=== PATIENT | male | born 1945 | race Caucasian/White ===

== ENCOUNTER 2017-07-24 14:16 | Inpatient (IN) | payer MEDICARE ==
[2017-07-24 19:12] LABS: Troponin I Less than 0.010 ng/mL (< 0.028)
[2017-07-24 22:46] LABS: Troponin I Less than 0.010 ng/mL (< 0.028)
[2017-07-24] MEDS ORDERED: Warfarin Sodium 7.5 MG TAB PO SCH (23:45)
[2017-07-25] MEDS ORDERED: Ondansetron HCl/PF 4 MG/2 ML Vial IVP PRN (02:17)
[2017-07-25] MEDS ORDERED: Dextrose 5% in Water 1,000 ML IV PRN (02:17)
[2017-07-25] MEDS ORDERED: Insulin Regular 300 UNITS/3 ML VIAL SC PRN (02:17)
[2017-07-25] MEDS ORDERED: Ondansetron ODT 4 MG TAB PO PRN (02:17)
[2017-07-25] MEDS ORDERED: Nitroglycerin 0.4 MG TAB (25 Tab Bottle) PO PRN (02:17)
[2017-07-25] MEDS ORDERED: Senokot 8.6 MG TAB PO PRN (02:17)
[2017-07-25] MEDS ORDERED: Calcium Carbonate 500 MG ChewTAB PO PRN (02:17)
[2017-07-25] MEDS ORDERED: Dextrose 50% Abboject 50 ML SYRINGE SLOW IVP PRN (02:17)
[2017-07-25] MEDS ORDERED: Milk Of Magnesia 30 ML UDCUP PO PRN (02:17)
[2017-07-25] MEDS ORDERED: hydrALAZINE 20 MG/ML VIAL SLOW IVP PRN (02:21)
--- NOTE | 2017-07-25 02:47 | HP ---
DATE OF ADMISSION: 07/24/2017 PRIMARY CARE PHYSICIAN: Dr. Kiki Peres in [place]. FAMILY AUTISM TEACHER: Alex Simon. The patient thinks that his primary retail sales associate bilingual, Dr. Col busch. CHIEF COMPLAINT: Near syncopal episode. Please note that patient was seen and examined on 07/24/2017. HISTORY OF PRESENT ILLNESS: The patient is a 72-year-old male with chronic atrial fibrillation on an ticoagulation, diabetes mellitus type 2, hypertension, and dyslipidemia who presented to the hospital with above symptoms. This happened and while he was standing near the sink. Everything went foggy per patient report. Th e symptom lasted less than a minute. He denies any loss of consciousness. Two years ago, he had sim ilar symptoms. He denies any tinnitus, hearing loss, vertigo, headache, chest pain, palpitations, or shortness of breath. He thinks that he is back to his baseline. In the emergency room at [place], his initial vital signs showed temperature 98.3, respirations 16, pulse rate of 60 with a blood pressure 148/99 with O2 saturation 96% on room air. His EKG showed atr ial fibrillation with controlled ventricular response. In the emergency room, his heart rate dipped down into the low 40s. He was transferred to this facility for hospital admission. PAST MEDICAL HISTORY: 1. Chronic atrial fibrillation, on anticoagulation. 2. Chronic diastolic heart failure. 3. Obesity with a BMI 37.2. 4. Diabetes mellitus type 2. 5. Hypertension. 6. Dyslipidemia. 7. Glaucoma. PAST SURGICAL HISTORY: 1. Right ankle surgery. 2. Cyst removed from his testicles. 3. Cataract surgery. ALLERGIES: The patient is allergic to CODEINE. CURRENT HOME MEDICATIONS: Lipitor 10 mg daily, Lasix 40 mg daily, lisinopril/hydrochlorothiazide 20/ 12.5 daily, metformin 1000 mg b.i.d., potassium chloride 10 mEq daily, Coumadin 5 mg alternating with 7.5 mg. SOCIAL HISTORY: Patient currently lives at home. No smoking, alcohol or drug use. He has smoked ci gars in the past. He ambulates with the help of a cane. FAMILY HISTORY: Both parents had [place]. Mother at the age of 70. Father at age of 69. REVIEW OF SYSTEMS: The following complete review of systems was negative, unless otherwise mentioned in the HPI or below: Constitutional: Weight loss or gain, ability to conduct usual activities. Sk in: Rash, itching. Eyes: Double vision, pain. ENT/Mouth: Nose bleeding, neck stiffness, pain, te nderness. Cardiovascular: Palpitations, dyspnea on exertion, orthopnea. Respiratory: Shortness of breath, wheezing, cough, hemoptysis, fever or night sweats. Gastrointestinal: Poor appetite, abdom inal pain, heartburn, nausea, vomiting, constipation, or diarrhea. Genitourinary: Urgency, frequenc y, dysuria, nocturia. Musculoskeletal: Pain, swelling. Neurologic/Psychiatric: Anxiety, depressio n. Allergy/Immunologic: Skin rash, bleeding tendency. PHYSICAL EXAMINATION: VITAL SIGNS: As discussed above. His orthostatic vitals were negative. GENERAL: A 72-year-old male in no apparent distress. HEENT: Head is atraumatic, normocephalic, sclerae are anicteric. Moist mucous membranes. No oral l esion. NECK: Supple, no JVD appreciated. No carotid bruit. LUNGS: Clear to auscultation bilaterally, no wheezing or rhonchi. Lungs were symmetrical. HEART: S1, S2 present. Irregularly irregular, 2/6 systolic murmur over the mitral area. ABDOMEN: Soft, nontender, bowel sounds present, no rebound or guarding. EXTREMITIES: A 1+ edema in bilateral lower extremities. No calf tenderness. NEUROLOGIC: Grossly nonfocal, moves all four extremities. Power was 5/5 in all extremities. Crania l nerves II-XII were normal on examination. PSYCHIATRY: Alert, awake, oriented x3. SKIN: Warm and dry. LYMPH NODES: No palpable lymph nodes in the neck. PERIPHERAL VASCULAR: Radial pulses palpable bilaterally. MUSCULOSKELETAL: No joint swelling or tenderness. LABORATORY AND X-RAY FINDINGS: Troponins x3 have been negative. BNP was 183. Chemistry showed sodi um 139, potassium 3.9 with BUN 13, creatinine 0.76. CBC showed WBC 13.5 with hemoglobin 14.5, hematocrit 44. INR 1.5. CT scan of the brain by my review was negative for acute findings. It showed diffuse atrophy with mild chronic ischemic changes. EKG by my review showed atrial fibrillation with controlled ventricular response. IMPRESSION AND PLAN: 1. Near syncope, suspected cardiogenic. 2. Chronic atrial fibrillation on anticoagulation. 3. Subtherapeutic INR. 4. Chronic diastolic heart failure, appears to be compensated. 5. Obesity with a BMI of 37. 6. Diabetes mellitus type 2. 7. Hypertension. 8. Dyslipidemia. 9. Glaucoma. 10. Degenerative joint disease. PLAN: The patient will be monitored in the telemetry unit. Cardiology will be consulted. We will c ontinue his home medications. He was found to have heart rate in 40s at the emergency room. He is c urrently not on any AV melba blockers. We will continue all of his home medications. Orthostatic vi tals have been negative. Echocardiogram will be obtained. Plan of care was discussed with the patient in detail. He stated understanding. Insulin sliding sca le will be started. Please note that patient was seen on 07/24/2017.
[2017-07-25 04:58] LABS: INR-International Normal Ratio 1.5; Prothrombin Time 18.3 SEC (12.0-14.7)
[2017-07-25] MEDS: Lisinopril/Hydrochlorothiazide 20 mg/12.5 mg Tablet PO SCH (07:50)
[2017-07-25] MEDS ORDERED: Warfarin Sodium 7.5 MG TAB PO SCH (17:00)
--- NOTE | 2017-07-25 18:57 | CON ---
DATE OF CONSULTATION: 07/25/2017 CARDIOLOGY CONSULTATION REASON FOR CONSULTATION: Bradycardia and near syncope. HISTORY OF PRESENT ILLNESS: Mr. Cooper is a pleasant 72-year-old white gentleman who comes to the [facility] for near syncope. He was at home standing by the sink couple of days ago and he felt like the y were closing down the blinds on him. He felt he was close to passing out, eventually just sat down and it slowly got better. He states he has had several of these episodes since, so he decided to co me in for evaluation. He denies any full syncope. He has chronic atrial fibrillation. He saw Dr. Edwin nascimento in the hospital once and then as followup. He was following up with Dr. Bowen when he used to g o to [place]. Since he stopped going to [place], he has been lost to follow up. He is supposed to be on Coumadin for stroke prophylaxis and according to what he is telling me, he has not had it chec ked for a long time; actually 2 months ago, home health came to his house and they checked it, but he thinks that he has only been taking his medication. He has not been coming to [place] to check his IN R and his PCP according to him has not checked it either. Currently, he tells me he had a similar ep isode of presyncope at around noon when he was about to start his lunch and this correlated with a he art rate of 42 at that time. His heart rate has remained between the 40s and 60s mostly in the 60s. PAST MEDICAL HISTORY: 1. Chronic atrial fibrillation. 2. Chronic diastolic heart failure. 3. BMI of 37. 4. Type 2 diabetes. 5. Hypertension. 6. Hyperlipidemia. 7. Glaucoma. PAST SURGICAL HISTORY: 1. Right ankle surgery. 2. Cyst removed from testicle. 3. Cataract surgery. OUTPATIENT MEDICATIONS: 1. Lipitor. 2. Lasix. 3. Lisinopril/hydrochlorothiazide 20/12.5 daily. 4. Metformin. 5. Potassium chloride 10 mEq a day. 6. Coumadin. ALLERGIES: CODEINE. SOCIAL HISTORY: No alcohol, tobacco or drugs. He is a former cigar smoker. FAMILY HISTORY: Both parents had [place]. Mother at 70, father at 69. REVIEW OF SYSTEMS: Twelve point review of systems was done and is all negative unless stated in the history of present illness. PHYSICAL EXAMINATION: VITAL SIGNS: Temperature 98.5, pulse 64, respiration rate 18, satting 96% on room air, blood pressur e 137/70. He is not orthostatic. GENERAL: Awake, alert, oriented x3, in no distress. HEENT: Normocephalic, atraumatic. NECK: Supple. LUNGS: Clear. CARDIOVASCULAR: S1, S2, no S3, S4. Irregularly irregular heart rate in the 40s-50s. ABDOMEN: Soft, positive bowel sounds. EXTREMITIES: A 1+ edema. SKIN: Warm and dry. LABORATORY WORK: Reviewed. CBC with a white count of 13, hemoglobin 14, hematocrit 44, platelet cou nt 269. Coags were unremarkable. INR is 1.5, so subtherapeutic. Troponin is negative x3. BNP was 183. Normal sodium, potassium. Normal GFR. CT of the brain showed diffuse atrophy with mild chronic ischemic changes and left maxillary sinus mu cosal thickening. ASSESSMENT AND PLAN: 1. Symptomatic bradycardia. 2. Tachybrady syndrome. 3. Chronic atrial fibrillation. PLAN: 1. He had a presyncopal episode when his heart rate went down to the 40s. He is not taking any AV n odal blocking agents and his atrial fibrillation is going very slow. He goes generally in the 60s an d then he dips suddenly below 40s. At this time, I think he would be a candidate for a pacemaker leonardo cement. He is starting to get a little more confused, I will have to talk with his to see if [facility] are interested in having this done. We may have to wait for him to get less confused for this. Edwin thomas will make this decision later today. 2. Chronic atrial fibrillation. Currently, he is subtherapeutic on his INR. We will hold his Couma din for now for possible pacemaker placement tomorrow. 3. Hypertension, stable at this time. 4. Hyperlipidemia. 5. We will talk with his about possible pacemaker placement. If she is in agreement, we will p anselmo on doing this tomorrow morning. 6. Hold Coumadin for now secondary to possible pacemaker placement. 7. N.p.o. post-midnight for possible procedure in the morning. Thank you for letting us to participate in the care of your patient. We will follow.
[2017-07-25] MEDS: Atorvastatin Calcium 10 MG TAB PO SCH (20:14)
--- NOTE | 2017-07-25 20:34 | PDOC.PN ---
- Subjective Encounter Start Date: 07/25/17 Encounter Start Time: 20:25 Subjective: f/u for near syncope and symptomatic bradycardia. HR's in 50-60's -: but no symptoms currently. No CP or SOB. Admits to poor exercise -: tolerance and balance at home. - Objective Resuscitation Status: Resuscitation Status FULL:Full Resuscitation MAR Reviewed: Yes Vital Signs & Weight: Vital Signs (12 hours) Temp Pulse Resp BP BP BP BP 07/25/17 15:32 98.5 F 64 24 H 136/71 07/25/17 13:10 66 153/68 H 07/25/17 11:05 64 137/70 144/96 H 07/25/17 10:28 97.8 F 54 L 18 139/81 BP Pulse Ox 07/25/17 15:32 94 L 07/25/17 13:10 07/25/17 11:05 139/70 07/25/17 10:28 96 Weight Weight 305 lb 8 oz I&O: 07/24/17 07/25/17 07/26/17 06:59 06:59 06:59 Intake Total 480 Output Total 500 Balance -20 Additional Labs: Accuchecks 07/25/17 07/25/17 07/25/17 16:50 10:30 05:33 POC Glucose 135 H 127 H 155 H Laboratory Tests 01/24/17 07/24/17 07/24/17 09:21 12:06 18:40 PT INR Hemoglobin A1c 6.2 H Troponin I Less than 0.010 B-Natriuretic Peptide 183.2 H 07/24/17 07/25/17 22:11 04:30 PT 18.3 H INR 1.5 Hemoglobin A1c Troponin I Less than 0.010 B-Natriuretic Peptide Radiology Reviewed by me: Yes (2D echo - EF 60-65%, A-fib during study) EKG Reviewed by me: Yes (Tele - A-fib with controlled rate, 9 beats V-tach) Phys Exam - Physical Examination Constitutional: NAD HEENT: PERRLA, oral pharynx no lesions Neck: no JVD, supple Respiratory: no wheezing, clear to auscultation bilateral Cardiovascular: irregular Gastrointestinal: soft, non-tender, no distention, positive bowel sounds Musculoskeletal: no edema, pulses present Neurological: normal sensation, moves all 4 limbs Psychiatric: A&O x 3 Skin: normal turgor, cap refill <2 seconds Dx/Plan (1) Symptomatic bradycardia Code(s): R00.1 - BRADYCARDIA, UNSPECIFIED Status: Acute Comment: Plan for pacemaker placement in am 07/26/17, hold Coumadin (2) Near syncope Status: Acute Comment: Recurrent episodes likely due to #1, see above (3) Atrial fibrillation Code(s): I48.91 - UNSPECIFIED ATRIAL FIBRILLATION Status: Chronic Comment: Rate controlled, Coumadin subtherapeutic for anticoagulation (4) Diastolic CHF Code(s): I50.30 - UNSPECIFIED DIASTOLIC (CONGESTIVE) HEART FAILURE Status: Chronic Qualifiers: Heart failure chronicity: chronic Qualified Code(s): I50.32 - Chronic diastolic (congestive) heart failure Comment: EF 60-65%, supportive mgmt - Plan DVT proph w/SCDs Stable currently -: Plan for Pacemaker insertion 07/26/17 -: Hold Coumadin -: PT evaluation after PM placement -: AM labs: PT/INR * Convert to inpt status
[2017-07-26 05:51] LABS: INR-International Normal Ratio 1.6; Prothrombin Time 19.4 SEC (12.0-14.7)
[2017-07-26] MEDS: Lisinopril/Hydrochlorothiazide 20 mg/12.5 mg Tablet PO SCH ×2 (08:52→12:31)
--- NOTE | 2017-07-26 16:02 | PDOC.CTH ---
Cardiology Progress Note - Subjective He is doing better. Mentation is back at baseline. Family at bedside. - Objective Vital Signs Temp Pulse Resp BP BP Pulse Ox 07/26/17 14:01 97.5 F L 54 L 18 145/91 H 96 07/26/17 12:31 60 163/99 H 07/26/17 11:43 97.7 F 60 18 163/99 H 97 07/26/17 08:00 97.4 F L 53 L 20 97 07/26/17 07:38 97.4 F L 53 L 18 138/73 97 - Physical Examination General/Neuro: alert & oriented x3, NAD Neck: no JVD present Lungs: CTA, unlabored respirations Heart: RRR Abdomen: NT/ND Extremities: + edema B (1+) - Telemetry Telemetry Rhythm: Afib HR 50-60 - Labs Troponin/CKMB Troponin I Less than 0.010 ng/mL (< 0.028) 07/24/17 22:11 - Assessment/Plan 1. Afib SVR 2. Symptomatic bradycardia. 3. Presyncope PLAN: - PPM placement once INR lower. - Continue other meds. - No AV melba blocking agents.
[2017-07-26] MEDS ORDERED: Warfarin Sodium 5 MG TAB PO SCH (17:00)
--- NOTE | 2017-07-26 18:36 | PDOC.PN ---
- Subjective Encounter Start Date: 07/26/17 Encounter Start Time: 18:30 Subjective: f/u for symptomatic bradycardia and near syncopal event. Plan for PM -: placement but INR 1.6. Retry in am per nursing. No new events or -: complaints. - Objective MAR Reviewed: Yes Vital Signs & Weight: Vital Signs (12 hours) Temp Pulse Resp BP BP BP Pulse Ox 07/26/17 16:03 97.6 F 74 16 134/84 95 07/26/17 14:01 97.5 F L 54 L 18 145/91 H 96 07/26/17 12:31 60 163/99 H 07/26/17 11:43 97.7 F 60 18 163/99 H 97 07/26/17 08:00 97.4 F L 53 L 20 97 07/26/17 07:38 97.4 F L 53 L 18 138/73 97 I&O: 07/25/17 07/26/17 07/27/17 06:59 06:59 06:59 Intake Total 970 Output Total 325 Balance 645 Additional Labs: Accuchecks 07/26/17 07/26/17 07/26/17 17:51 11:52 06:37 POC Glucose 132 H 122 H 148 H 07/25/17 20:51 POC Glucose 174 H Radiology Reviewed by me: Yes (2D echo EF 60-65%, A-fib during study, mild MR/ TR) EKG Reviewed by me: Yes (Tele - A-fib in 40-50's) Phys Exam - Physical Examination Constitutional: NAD HEENT: PERRLA, oral pharynx no lesions Neck: no JVD, supple Respiratory: no wheezing, clear to auscultation bilateral Cardiovascular: irregular Gastrointestinal: soft, non-tender, no distention, positive bowel sounds Musculoskeletal: no edema, pulses present Neurological: normal sensation, moves all 4 limbs Psychiatric: A&O x 3 Skin: normal turgor, cap refill <2 seconds Dx/Plan (1) Symptomatic bradycardia Code(s): R00.1 - BRADYCARDIA, UNSPECIFIED Status: Acute Comment: Plan for pacemaker placement in am 07/27/17, hold Coumadin (2) Near syncope Status: Acute Comment: Recurrent episodes likely due to #1, see above (3) Atrial fibrillation Code(s): I48.91 - UNSPECIFIED ATRIAL FIBRILLATION Status: Chronic Comment: Rate controlled, Coumadin subtherapeutic for anticoagulation but on hold for PM placement (4) Diastolic CHF Code(s): I50.30 - UNSPECIFIED DIASTOLIC (CONGESTIVE) HEART FAILURE Status: Chronic Qualifiers: Heart failure chronicity: chronic Qualified Code(s): I50.32 - Chronic diastolic (congestive) heart failure Comment: EF 60-65%, supportive mgmt (5) HTN (hypertension) Code(s): I10 - ESSENTIAL (PRIMARY) HYPERTENSION Status: Chronic Qualifiers: Hypertension type: essential hypertension Qualified Code(s): I10 - Essential (primary) hypertension Comment: Labile, resume Lasix 40mg daily, continue Lisinopril/HCTZ - Plan DVT proph w/SCDs Stable currently -: PM placement planned for 07/27/17 -: Hold Coumadin and check INR in am -: Resume Lasix and monitor fluid intake -: AM lab: PT/INR * .
[2017-07-26] MEDS: Atorvastatin Calcium 10 MG TAB PO SCH (20:51)
[2017-07-26] MEDS: Acetaminophen 325 MG TAB PO PRN (20:52)
[2017-07-27 05:33] LABS: INR-International Normal Ratio 1.5
[2017-07-27] MEDS: Furosemide 40 MG TAB PO SCH (07:22)
[2017-07-27] MEDS: Lisinopril/Hydrochlorothiazide 20 mg/12.5 mg Tablet PO SCH (09:36)
[2017-07-27] MEDS: Potassium Chloride 10 MEQ TAB PO SCH (09:37)
[2017-07-27] MEDS: Insulin Regular 300 UNITS/3 ML VIAL SC PRN (11:54)
--- NOTE | 2017-07-27 13:56 | PDOC.PN ---
- Subjective Encounter Start Date: 07/27/17 Encounter Start Time: 11:00 Patient is seen today, Waiitng on pacemaker placement, his INR is Still >1.3, No concerns noted. - Objective MAR Reviewed: Yes Vital Signs & Weight: Vital Signs (12 hours) Temp Pulse Resp BP Pulse Ox 07/27/17 11:50 97.3 F L 56 L 18 117/62 97 07/27/17 07:17 97.7 F 58 L 18 135/72 94 L 07/27/17 04:00 97.5 F L 59 L 20 138/77 94 L Weight Weight 298 lb 14.4 oz I&O: 07/26/17 07/27/17 07/28/17 06:59 06:59 06:59 Intake Total 1330 Output Total 775 Balance 555 Additional Labs: Accuchecks 07/27/17 07/27/17 07/26/17 11:23 06:00 20:40 POC Glucose 194 H 144 H 196 H 07/26/17 17:51 POC Glucose 132 H Radiology Reviewed by me: Yes Phys Exam - Physical Examination HEENT: PERRLA, moist MMs Neck: no nodes, no JVD Respiratory: no wheezing, no rales Cardiovascular: RRR, no significant murmur Gastrointestinal: soft, non-tender Musculoskeletal: no edema, pulses present Neurological: non-focal, normal sensation Lymphatic: no nodes Psychiatric: normal affect Dx/Plan (1) Near syncope Status: Acute Comment: Recurrent episodes likely due to Bradycardia (2) Symptomatic bradycardia Code(s): R00.1 - BRADYCARDIA, UNSPECIFIED Status: Acute Comment: Plan for pacemaker placement in am 07/27/17, hold Coumadin (3) HTN (hypertension) Code(s): I10 - ESSENTIAL (PRIMARY) HYPERTENSION Status: Chronic Qualifiers: Hypertension type: essential hypertension Qualified Code(s): I10 - Essential (primary) hypertension Comment: Labile, resume Lasix 40mg daily, continue Lisinopril/HCTZ (4) Atrial fibrillation Code(s): I48.91 - UNSPECIFIED ATRIAL FIBRILLATION Status: Chronic Comment: Rate controlled, Coumadin subtherapeutic for anticoagulation but on hold for PM placement, INR today 1.5, goal <1.3 (5) Diastolic CHF Code(s): I50.30 - UNSPECIFIED DIASTOLIC (CONGESTIVE) HEART FAILURE Status: Chronic Qualifiers: Heart failure chronicity: chronic Qualified Code(s): I50.32 - Chronic diastolic (congestive) heart failure Comment: EF 60-65%, supportive mgmt - Plan cont current plan of care, respiratory therapy, incentive spirometry, DVT proph w/SCDs * . - Discharge Day Encounter end time: 11:35 Review of Systems - Review of Systems Constitutional: negative: fever, chills, sweats, weakness, malaise, other Eyes: negative: Pain, Vision Change, Conjunctivae Inflammation, Eyelid Inflammation, Redness, Other ENT: negative: Ear Pain, Ear Discharge, Nose Pain, Nose Discharge, Nose Congestion, Mouth Pain, Mouth Swelling, Throat Pain, Throat Swelling, Other Respiratory: negative: Cough, Dry, Shortness of Breath, Hemoptysis, SOB with Excertion, Pleuritic Pain, Sputum, Wheezing Cardiovascular: negative: chest pain, palpitations, orthopnea, paroxysmal nocturnal dyspnea, edema, light headedness, other Gastrointestinal: negative: Nausea, Vomiting, Abdominal Pain, Diarrhea, Constipation, Melena, Hematochezia, Other Musculoskeletal: negative: Neck Pain, Shoulder Pain, Arm Pain, Back Pain, Hand Pain, Leg Pain, Foot Pain, Other - Medications/Allergies Allergies/Adverse Reactions: Allergies Allergy/AdvReac Type Severity Reaction Status Date / Time codeine AdvReac Severe Verified 07/24/17 22:16 Medications: Current Medications Acetaminophen (Tylenol) 650 mg PO Q4H PRN PRN Reason: Headache/Fever or Pain Last Admin: 07/26/17 20:52 Dose: 650 mg Atorvastatin Calcium (Lipitor) 10 mg PO [facility] Last Admin: 07/26/17 20:51 Dose: 10 mg Calcium Carbonate (Tums) 1,000 mg PO Q4H PRN PRN Reason: Heartburn or Indigestion Dextrose/Water (Dextrose 50%) 25 gm SLOW IVP PRN PRN PRN Reason: Hypoglycemia Furosemide (Lasix) 40 mg PO DAILY-AC [facility] Last Admin: 07/27/17 07:22 Dose: 40 mg Glucagon (Glucagon) 1 mg IM PRN PRN PRN Reason: Hypoglycemia Lisinopril/HCTZ (Prinizide 20-12.5) 1 tab PO DAILY [facility] Last Admin: 07/27/17 09:36 Dose: 1 tab Hydralazine HCl (Apresoline) 10 mg SLOW IVP Q4H PRN PRN Reason: SBP Greater Than 180 Dextrose/Water (D5w) 1,000 mls @ 0 mls/hr IV .Q0M PRN; As Directed PRN Reason: Hypoglycemia Insulin Human Regular (Humulin R) 0 units SC .MILD SLIDING SCALE PRN PRN Reason: Mild Correctional Scale Last Admin: 07/27/17 11:54 Dose: 2 unit Insulin Human Regular (Humulin R) 0 units SC .BEDTIME SLIDING SC PRN PRN Reason: Bedtime Correctional Scale Magnesium Hydroxide (Milk Of Magnesium) 30 ml PO DAILYPRN PRN PRN Reason: Constipation Miscellaneous Medication (Pharmacy To Dose) 1 each PO .WARFARIN [facility] Stop: 08/24/17 02:31 Nitroglycerin (Nitrostat) 0.4 mg PO Q5MIN PRN PRN Reason: Chest Pain Ondansetron HCl (Zofran Odt) 4 mg PO Q6H PRN PRN Reason: Nausea/Vomiting Ondansetron HCl (Zofran) 4 mg IVP Q6H PRN PRN Reason: Nausea/Vomiting Potassium Chloride (Klor-Con 10) 10 meq PO QAM-WM [facility] Last Admin: 07/27/17 09:37 Dose: 10 meq Senna (Senokot) 2 tab PO HSPRN PRN PRN Reason: Constipation Sodium Chloride (Flush - Normal Saline) 10 ml IVF Q12HR [facility] Last Admin: 07/27/17 09:37 Dose: 10 ml Sodium Chloride (Flush - Normal Saline) 10 ml IVF PRN PRN PRN Reason: Saline Flush Last Admin: 07/26/17 14:17 Dose: 10 ml
--- NOTE | 2017-07-27 16:23 | PDOC.CTH ---
<Melani Herrmann - Last Filed: 07/27/17 16:23> Cardiology Progress Note - Subjective The pt seen and examined. No overnight events. No cardiac complaints. He has not gotten up much lately due to hx of near syncopal episodes. - Objective Vital Signs Temp Pulse Resp BP Pulse Ox 07/27/17 11:50 97.3 F L 56 L 18 117/62 97 07/27/17 07:17 97.7 F 58 L 18 135/72 94 L Weight 298 lb 14.4 oz 07/26/17 07/27/17 07/28/17 06:59 06:59 06:59 Intake Total 1330 Output Total 775 Balance 555 - Physical Examination General/Neuro: alert & oriented x3 Neck: no JVD present Lungs: CTA Heart: other: (irregular) Abdomen: soft Extremities: other: (No edema) - Telemetry Telemetry Rhythm: Afib HR 70s - Labs Troponin/CKMB Troponin I Less than 0.010 ng/mL (< 0.028) 07/24/17 22:11 - Assessment/Plan 1. Symptomatic bradycardia with Hx of Presyncopal episodes - Stable; Plan for PM placement when his INR < 1.3 which is 1.5 today 2. Chronic Afib - HR well controlled; not antiarrhythmia meds at this moment. Cont. monitor on tele 3. Chronic Diastolic HF - stable with Lasix 40mg daily and JUAN. 4. HTN - stable 5. DM type 2 - managed by PCP 6. Hyperlipidemia - on Statin MAR reviewed Review of Systems - Review of Systems Constitutional: reports: no symptoms reported EENTM: reports: no symptoms reported Respiratory: reports: no symptoms reported Cardiac (ROS): reports: no symptoms reported ABD/GI: reports: no symptoms reported : reports: no symptoms reported Musculoskeletal: reports: no symptoms reported <Ramy Nam - Last Filed: 07/28/17 00:12> Cardiology Progress Note - Objective Vital Signs Temp Pulse Resp BP Pulse Ox 07/27/17 21:01 97.8 F 54 L 14 93 L 07/27/17 20:53 97.8 F 54 L 14 132/60 93 L 07/27/17 15:30 97.4 F L 61 20 150/80 H 94 L Weight 298 lb 14.4 oz 07/26/17 07/27/17 07/28/17 06:59 06:59 06:59 Intake Total 1330 1210 Output Total 775 1150 Balance 555 60 - Labs Troponin/CKMB Troponin I Less than 0.010 ng/mL (< 0.028) 07/24/17 22:11 - Assessment/Plan Pt. seen and eval. by me. I agree with the A/P by the [employer]. We discussed the pt. and plan.
--- NOTE | 2017-07-27 19:59 | EKG ---
Test Reason : Blood Pressure : / mmHG Vent. Rate : 066 BPM Atrial Rate : 241 BPM P-R Int : 000 ms QRS Dur : 082 ms QT Int : 408 ms P-R-T Axes : 000 -10 055 degrees QTc Int : 427 ms Atrial fibrillation Low voltage QRS Nonspecific ST and T wave abnormality Abnormal ECG Confirmed by FREDDIE CHAUDHARY ([id number]), multimedia editor PEEWEE SINGH ([id number]) on 07/27/2017 7:59:27 PM Referred By: Confirmed By:FREDDIE CHAUDHARY
[2017-07-27] MEDS: Atorvastatin Calcium 10 MG TAB PO SCH (21:00)
[2017-07-28] MEDS: Furosemide 40 MG TAB PO SCH (07:31)
[2017-07-28] MEDS: Potassium Chloride 10 MEQ TAB PO SCH (08:42)
[2017-07-28] MEDS: Lisinopril/Hydrochlorothiazide 20 mg/12.5 mg Tablet PO SCH (08:42)
[2017-07-28] MEDS: Insulin Regular 300 UNITS/3 ML VIAL SC PRN (11:47)
[2017-07-28 12:10] LABS: INR-International Normal Ratio 1.1; Prothrombin Time 14.8 SEC (12.0-14.7)
--- NOTE | 2017-07-28 13:48 | PDOC.PN ---
- Subjective Encounter Start Date: 07/28/17 Encounter Start Time: 10:00 Paiten seen today, alert and oriented. had persistant low HR, waiitng for pacemaker tomorrow, repeat INR today. - Objective MAR Reviewed: Yes Vital Signs & Weight: Vital Signs (12 hours) Temp Pulse Resp BP Pulse Ox 07/28/17 11:13 97.7 F 66 17 137/91 H 94 L 07/28/17 08:00 97.3 F L 62 17 07/28/17 07:27 97.3 F L 62 17 140/68 96 07/28/17 04:00 97.4 F L 58 L 16 118/74 95 Weight Weight 298 lb 12.8 oz I&O: 07/27/17 07/28/17 07/29/17 06:59 06:59 06:59 Intake Total 1330 1570 Output Total 775 2025 Balance 555 -455 Additional Labs: Accuchecks 07/28/17 07/28/17 07/27/17 10:52 06:12 20:55 POC Glucose 183 H 175 H 242 H 07/27/17 16:41 POC Glucose 120 H Phys Exam - Physical Examination HEENT: PERRLA, moist MMs Neck: no nodes, no JVD Respiratory: no wheezing, no rales Cardiovascular: RRR, no significant murmur Gastrointestinal: soft, non-tender Musculoskeletal: no edema, pulses present Neurological: non-focal, normal sensation Lymphatic: no nodes Psychiatric: normal affect, A&O x 3 Dx/Plan (1) Near syncope Status: Acute Comment: Recurrent episodes likely due to Bradycardia, Stable. (2) Symptomatic bradycardia Code(s): R00.1 - BRADYCARDIA, UNSPECIFIED Status: Acute Comment: Plan for pacemaker placement in am 07/27/17, hold Coumadin, Repeat INR today. (3) HTN (hypertension) Code(s): I10 - ESSENTIAL (PRIMARY) HYPERTENSION Status: Chronic Qualifiers: Hypertension type: essential hypertension Qualified Code(s): I10 - Essential (primary) hypertension Comment: Labile, resume Lasix 40mg daily, continue Lisinopril/HCTZ (4) Atrial fibrillation Code(s): I48.91 - UNSPECIFIED ATRIAL FIBRILLATION Status: Chronic Comment: Rate controlled, Coumadin subtherapeutic for anticoagulation but on hold for PM placement, INR today 1.5, goal <1.3 (5) Diastolic CHF Code(s): I50.30 - UNSPECIFIED DIASTOLIC (CONGESTIVE) HEART FAILURE Status: Chronic Qualifiers: Heart failure chronicity: chronic Qualified Code(s): I50.32 - Chronic diastolic (congestive) heart failure Comment: EF 60-65%, supportive mgmt - Plan cont current plan of care, PT/OT, nephrology social worker, respiratory therapy, DVT proph w/SCDs * . - Discharge Day Encounter end time: 10:35 Review of Systems - Review of Systems Eyes: negative: Pain, Vision Change, Conjunctivae Inflammation, Eyelid Inflammation, Redness, Other ENT: negative: Ear Pain, Ear Discharge, Nose Pain, Nose Discharge, Nose Congestion, Mouth Pain, Mouth Swelling, Throat Pain, Throat Swelling, Other Respiratory: negative: Cough, Dry, Shortness of Breath, Hemoptysis, SOB with Excertion, Pleuritic Pain, Sputum, Wheezing Cardiovascular: negative: chest pain, palpitations, orthopnea, paroxysmal nocturnal dyspnea, edema, light headedness, other Gastrointestinal: negative: Nausea, Vomiting, Abdominal Pain, Diarrhea, Constipation, Melena, Hematochezia, Other Musculoskeletal: negative: Neck Pain, Shoulder Pain, Arm Pain, Back Pain, Hand Pain, Leg Pain, Foot Pain, Other Skin: negative: Rash, Lesions, Shen, Bruising, Other - Medications/Allergies Allergies/Adverse Reactions: Allergies Allergy/AdvReac Type Severity Reaction Status Date / Time codeine AdvReac Severe Verified 07/24/17 22:16 Medications: Current Medications Acetaminophen (Tylenol) 650 mg PO Q4H PRN PRN Reason: Headache/Fever or Pain Last Admin: 07/26/17 20:52 Dose: 650 mg Atorvastatin Calcium (Lipitor) 10 mg PO [facility] Last Admin: 07/27/17 21:00 Dose: 10 mg Calcium Carbonate (Tums) 1,000 mg PO Q4H PRN PRN Reason: Heartburn or Indigestion Dextrose/Water (Dextrose 50%) 25 gm SLOW IVP PRN PRN PRN Reason: Hypoglycemia Furosemide (Lasix) 40 mg PO DAILY-AC [facility] Last Admin: 07/28/17 07:31 Dose: 40 mg Glucagon (Glucagon) 1 mg IM PRN PRN PRN Reason: Hypoglycemia Lisinopril/HCTZ (Prinizide 20-12.5) 1 tab PO DAILY [facility] Last Admin: 07/28/17 08:42 Dose: 1 tab Hydralazine HCl (Apresoline) 10 mg SLOW IVP Q4H PRN PRN Reason: SBP Greater Than 180 Dextrose/Water (D5w) 1,000 mls @ 0 mls/hr IV .Q0M PRN; As Directed PRN Reason: Hypoglycemia Insulin Human Regular (Humulin R) 0 units SC .MILD SLIDING SCALE PRN PRN Reason: Mild Correctional Scale Last Admin: 07/28/17 11:47 Dose: 2 unit Insulin Human Regular (Humulin R) 0 units SC .BEDTIME SLIDING SC PRN PRN Reason: Bedtime Correctional Scale Last Admin: 07/27/17 21:01 Dose: 2 unit Magnesium Hydroxide (Milk Of Magnesium) 30 ml PO DAILYPRN PRN PRN Reason: Constipation Miscellaneous Medication (Pharmacy To Dose) 1 each PO .WARFARIN [facility] Stop: 08/24/17 02:31 Nitroglycerin (Nitrostat) 0.4 mg PO Q5MIN PRN PRN Reason: Chest Pain Ondansetron HCl (Zofran Odt) 4 mg PO Q6H PRN PRN Reason: Nausea/Vomiting Ondansetron HCl (Zofran) 4 mg IVP Q6H PRN PRN Reason: Nausea/Vomiting Potassium Chloride (Klor-Con 10) 10 meq PO QAM-WM [facility] Last Admin: 07/28/17 08:42 Dose: 10 meq Senna (Senokot) 2 tab PO HSPRN PRN PRN Reason: Constipation Sodium Chloride (Flush - Normal Saline) 10 ml IVF Q12HR [facility] Last Admin: 07/28/17 08:42 Dose: 10 ml Sodium Chloride (Flush - Normal Saline) 10 ml IVF PRN PRN PRN Reason: Saline Flush Last Admin: 07/26/17 14:17 Dose: 10 ml
--- NOTE | 2017-07-28 18:30 | PDOC.CTH ---
<Melani Herrmann - Last Filed: 07/28/17 18:28> Cardiology Progress Note - Subjective The pt seen and examined. No overnight events. No cardiac complaints. - Objective Vital Signs Temp Pulse Resp BP Pulse Ox 07/28/17 15:33 97.5 F L 66 17 151/71 H 94 L 07/28/17 11:13 97.7 F 66 17 137/91 H 94 L 07/28/17 08:00 97.3 F L 62 17 07/28/17 07:27 97.3 F L 62 17 140/68 96 Weight 298 lb 12.8 oz 07/27/17 07/28/17 07/29/17 06:59 06:59 06:59 Intake Total 1330 1570 2150 Output Total 775 2025 950 Balance 555 -455 1200 - Physical Examination General/Neuro: alert & oriented x3 Neck: no JVD present Lungs: CTA Heart: other: (irregular) Abdomen: soft Extremities: other: (no edema) - Labs Troponin/CKMB Troponin I Less than 0.010 ng/mL (< 0.028) 07/24/17 22:11 - Assessment/Plan 1. Symptomatic bradycardia with Hx of Presyncopal episodes - Stable; Plan for PM placement on 07/29/17 since his INR < 1.3 today. 2. Chronic Afib - HR well controlled; not antiarrhythmia meds at this moment. Cont. monitor on tele 3. Chronic Diastolic HF - stable with Lasix 40mg daily and JUAN. 4. HTN - stable 5. DM type 2 - managed by PCP 6. Hyperlipidemia - on Statin MAR reviewed * The procedure and the risk of PM placement were explained to the pt. The risks are included, but not limited to, hemorrhage, infection, Pneumothrax, Lead perforation, thrombus. The pt voiced understanding and agreed to proceed the procedure. Review of Systems - Review of Systems Constitutional: reports: no symptoms reported EENTM: reports: no symptoms reported Respiratory: reports: no symptoms reported Cardiac (ROS): reports: no symptoms reported ABD/GI: reports: no symptoms reported : reports: no symptoms reported Musculoskeletal: reports: no symptoms reported <Ramy Nam - Last Filed: 07/28/17 19:17> Cardiology Progress Note - Objective Vital Signs Temp Pulse Resp BP Pulse Ox 07/28/17 15:33 97.5 F L 66 17 151/71 H 94 L 07/28/17 11:13 97.7 F 66 17 137/91 H 94 L 07/28/17 08:00 97.3 F L 62 17 07/28/17 07:27 97.3 F L 62 17 140/68 96 Weight 298 lb 12.8 oz 07/27/17 07/28/17 07/29/17 06:59 06:59 06:59 Intake Total 1330 1570 2150 Output Total 775 2025 950 Balance 555 -455 1200 - Labs Troponin/CKMB Troponin I Less than 0.010 ng/mL (< 0.028) 07/24/17 22:11 - Assessment/Plan Pt. seen and eval. by me. The INR is < 1.5 and we plan for the pacemaker insertion tomorrow.I agree with the A/P by the [employer] TEACHER. I will give 1 dose of lovenox this PM to decrease the risk of embolic phenomenon with the afib.
[2017-07-28] MEDS ORDERED: Enoxaparin Sodium 120 MG/0.8 ML SYRINGE SC SCH ×2 (20:00→21:00)
[2017-07-28] MEDS: Atorvastatin Calcium 10 MG TAB PO SCH (21:08)
[2017-07-29] MEDS ORDERED: CEFAZOLIN 1 GM VIAL ONE (06:37)
[2017-07-29] MEDS ORDERED: Lidocaine 1% (PF) 30 ML VIAL ONE ×2 (06:37→07:39)
[2017-07-29] MEDS ORDERED: CEFAZOLIN/Water 2 GM/20 ML SYRINGE ONE (06:37)
[2017-07-29] MEDS ORDERED: Gentamicin 80 MG/2 ML VIAL ONE (06:37)
--- NOTE | 2017-07-29 08:38 | CCL ---
PACEMAKER PLACEMENT: DATE OF PROCEDURE: 07/29/17. INDICATION FOR PROCEDURE: A 72-year-old patient with chronic atrial fibrillation and tachybrady syndrome. He developed signifi cant bradycardia and was advised to undergo pacemaker insertion. PROCEDURE: He was taken to the cardiac mechanical laboratory technician where he underwent the procedure today without difficulties or c omplications. We did require a venogram to visualize the left subclavian vein. This was given with less than about 10 mL of contrast material for visualization of the vein. There were no other compli cations or difficulties encountered. The patient was implanted with a single-chamber pacemaker with a single lead placed into the right ventricle. The pacemaker is an Melony XTSR MRI compatible pacemak er. There were no difficulties or complications. The pacemaker set with the upper rate of 120 and t he lower rate was set at 60. POS: [facility]
[2017-07-29] MEDS: Lisinopril/Hydrochlorothiazide 20 mg/12.5 mg Tablet PO SCH (08:40)
[2017-07-29] MEDS: Potassium Chloride 10 MEQ TAB PO SCH (08:40)
[2017-07-29] MEDS: Furosemide 40 MG TAB PO SCH (08:40)
--- NOTE | 2017-07-29 11:16 | RAD ---
RADIOGRAPH CHEST 1 VIEW: Date: 07-29-17 Time: 10:56 a.m. HISTORY: 72-year-old male with dyspnea. COMPARISON: 09-07-14 FINDINGS: Ectasia and tortuosity of the thoracic aorta. No cardiomegaly. Mild haziness at the right lung base. Indistinct right lateral hemidiaphragmatic shadow. No pulmonary edema. Upper lobes are clear. Single lead left subclavian pacemaker is new since the prior study. No pneumothorax. No pulmonary vascular e ngorgement. IMPRESSION: 1. Questionable small right pleural effusion. 2. No evidence of congestive heart failure. 3. Pacemaker. ANURAG POS: [facility]
--- NOTE | 2017-07-29 11:19 | PDOC.CTH ---
Cardiology Progress Note - Subjective He is doing well. he had his PPM placed today and did well. - Objective Vital Signs Temp Pulse Resp BP Pulse Ox 07/29/17 08:55 97.4 F L 83 18 07/29/17 08:38 97.4 F L 83 18 134/86 99 07/29/17 05:31 94 L 07/29/17 04:00 97.9 F 56 L 18 124/78 93 L Weight 290 lb 3.2 oz 07/28/17 07/29/17 07/30/17 06:59 06:59 06:59 Intake Total 1570 2330 Output Total 2024 1150 Balance -455 1180 - Physical Examination General/Neuro: alert & oriented x3, NAD Neck: no JVD present Lungs: CTA, unlabored respirations Heart: RRR Abdomen: NT/ND Extremities: + edema B (trace) - Telemetry Telemetry Rhythm: Afib HR 70's. - Labs Troponin/CKMB Troponin I Less than 0.010 ng/mL (< 0.028) 07/24/17 22:11 - Assessment/Plan 1. Afib SVR 2. Symptomatic bradycardia. 3. s/p PPM today. PLAN: - Continue home regimen. - Restart coumadin tomorrow. - Follow up in the office in 4 weeks. - Home any time from cardiac perspective.
[2017-07-29] MEDS: Acetaminophen 325 MG TAB PO PRN (11:46)
[2017-07-29] MEDS ORDERED: Iopamidol 370 76% 50 ML VIAL FS ONE (13:41)
[2017-07-29 15:52] VITALS: BP 122/74; TEMP 97.8
[2017-07-29] MEDS ORDERED: Warfarin Sodium 5 MG TAB PO SCH (17:00)
--- NOTE | 2017-07-29 18:51 | DIS ---
DATE OF ADMISSION: 07/25/2017 DATE OF DISCHARGE: 07/29/2017 ADMITTING DIAGNOSIS: Near syncopal episode secondary to bradycardia. DISCHARGE DIAGNOSIS: Acute syncopal episode secondary to bradycardia status post pacemaker placement . SECONDARY DIAGNOSES: 1. Chronic atrial fibrillation, on anticoagulation. 2. Chronic diastolic heart failure. 3. Obesity. 4. Type 2 diabetes mellitus. 5. Hypertension. 6. Dyslipidemia. 7. Glaucoma. CONSULTANTS INVOLVED IN THE CARE: Dr. Abreu from Cardiology. INVESTIGATIONS DONE DURING THIS ADMISSION: EP study for pacemaker placement. HISTORY OF PRESENT ILLNESS AND HOSPITAL COURSE: In brief, this is a 72-year-old morbidly obese white male with chronic atrial fibrillation on anticoagulation with Coumadin drip. The patient has a hist ory of type 2 diabetes mellitus, hypertension, and dyslipidemia. He presented to the hospital with s ymptoms of near syncopal episode. The patient mentioned that everything went foggy and symptoms last ed less than a minute and denies any loss of consciousness. Two years ago, he had the similar sympto ms, but denies any tinnitus or hearing loss, or vertigo. He was seen by Cardiology during this admis rocio and EKG showing atrial fibrillation with controlled ventricular response and his heart rate drop ped to less than 40s, so his beta blockers were held and the patient was monitored for a couple of da ys as his INR was supratherapeutic and plan for a pacemaker placement once his INR is less than 1.3. The patient was closely monitored until the INR went down to 1.1 and he was scheduled for pacemaker placement. The patient tolerated the procedure well. There were no postop complications and the pat ient was advised to go home by Cardiology and follow up with the primary care physician in 1-2 weeks. The patient is discharged home in stable condition. PHYSICAL EXAMINATION: VITAL SIGNS: On day of discharge, blood pressures are 122/74, heart rate is 98, respiratory rate 18, saturation 97%. CARDIOVASCULAR: S1, S2 normal. No murmurs, rubs or gallops. LUNGS: Bilateral air entry was equal. No wheezing, no crackles. ABDOMEN: Soft, nontender, no guarding, no rebound tenderness. Bowel sounds normal. MUSCULOSKELETAL: No calf tenderness. No pedal edema. No joint tenderness, no joint swelling. SKIN: No cyanosis, no erythema, no rash, no pallor. DISCHARGE MEDICATIONS: 1. Coreg 3.125 mg p.o. b.i.d. 2. Metformin 1000 mg p.o. b.i.d. 3. Atorvastatin 10 mg p.o. daily. 4. Lasix 40 mg p.o. daily. 5. Lisinopril/hydrochlorothiazide 20/12.5 mg 1 tablet p.o. daily. 6. Potassium 10 mEq p.o. daily. 7. Warfarin 7.5 mg p.o. on Saturday, , Saturday and Sundays and 5 mg p.o. on Saturday, , and Saturday. DISCHARGE INSTRUCTIONS: 1. Continue activity as tolerated. Advised to avoid trauma to the pacemaker site and monitor for an y bleeding or hematoma. Advised to return back to the ER for any further dizziness or dizzy spells o r any chest pains. 2. The patient will follow up with the primary care physician in 1-2 weeks. I spent 35 minutes with this patient on the day of discharge.
== END 2017-07-29 17:50 | disposition home or self-care (01) | DRG 243 ==
LOC: ERS 14:16 → 2SW 21:08 → OBSVTOIN 07-25 20:23 → 2NO 07-26 13:47
PROVIDERS: ADMIT Internal Medicine; ATTEND Internal Medicine
PROC: 0JH Subcutaneous Tissue and Fascia, Insertion (ICD-10-PCS; principal; 2017-07-29)
PROC: 02HK3JZ Insertion of Pacemaker Lead into Right Ventricle, Percutaneous Approach (ICD-10-PCS; 2017-07-29)
DX: I48.2 Chronic atrial fibrillation (principal); I50.32 Chronic diastolic (congestive) heart failure; E11.9 Type 2 diabetes mellitus without complications; I11.0 Hypertensive heart disease with heart failure; Z79.01 Long term (current) use of anticoagulants; E78.5 Hyperlipidemia, unspecified; E66.9 Obesity, unspecified; Z68.37 Body mass index [BMI] 37.0-37.9, adult; H40.9 Unspecified glaucoma; Z79.4 Long term (current) use of insulin; Z91.19 Patient's noncompliance with other medical treatment and regimen
CPT/HCPCS: 33207; 36005; 36415; 36416; 71045; 75820; 85610; 93005; 93306; 93798; A4216; C1785; C1898; J0690; J1580; J1650; J1815; J2001

== ENCOUNTER 2019-06-02 12:35 | Inpatient (IN) | payer MEDICARE ==
--- NOTE | 2019-06-02 13:37 | CT ---
EXAM: CT brain without contrast HISTORY: Syncope and fall COMPARISON: 06/02/2019 TECHNIQUE: Multiple contiguous axial images were obtained and a CT of the brain without contrast. FINDINGS: The brain is normal in morphology and attenuation without focal lesions or confluent areas of infarction. There is no evidence of hydrocephalus, intracranial hemorrhage, or extra-axial fluid collection. The calvarium and overlying soft tissues are unremarkable. The visualized paranasal sinuses and masto id air cells are well aerated. IMPRESSION: No evidence of acute intracranial abnormality
[2019-06-02 13:54] LABS: #Basophils 0.1 thou/uL (0.0-0.2); #Eosinphils 0.4 thou/uL (0.0-0.7); #Lymphocytes 2.4 thou/uL (1.20-3.40); #Monocytes 0.8 thou/uL (0.11-0.59); #Neutrophils 7.3 thou/uL (1.40-6.50); %Eosinophils 3.5 % (0.0-10.0); %Lymphocytes 21.9 % (21.0-51.0); %Monocytes 7.2 % (0.0-10.0); %Neutrophils 66.3 % (42.0-75.0); Hemoglobin 14.2 g/dL (14.0-18.0); Mean Corpuscular HGB CONC 32.6 g/dL (32.0-36.0); Mean Corpuscular Hemoglobin 29.2 pg (27.0-31.0); Mean Corpuscular Volume 89.6 fL (78.0-98.0); Mean Platelet Volume 7.9 fL (7.4-10.4); Platelet Count 300 thou/uL (130-400); RBC Distribution Width 12.5 % (11.5-14.5); Red Blood Cell (RBC) Count 4.87 mill/uL (4.70-6.10)
[2019-06-02 14:22] LABS: ALT (SGPT) 14 U/L (8-55); AST (SGOT) 14 U/L (5-34); Albumin 4.1 g/dL (3.4-4.8); Alkaline Phosphatase 139 U/L (40-110); Anion Gap 14 mmol/L (10-20); BUN (Urea Nitrogen) 11 mg/dL (8.4-25.7); Bilirubin, Total 0.8 mg/dL (0.2-1.2); Calc. Creatinine Clearance 0 mL/min (70-130); Calcium 9.4 mg/dL (7.8-10.44); Carbon Dioxide 26 mmol/L (23-31); Chloride 104 mmol/L (98-107); Estimated GFR-MDRD 80; Globulin 3.3 g/dL (2.4-3.5); Glucose 118 mg/dL (83-110); Potassium 3.9 mmol/L (3.5-5.1); Protein, Total 7.4 g/dL (5.8-8.1); Sodium 140 mmol/L (136-145)
[2019-06-02 14:38] LABS: CKMB 2.7 ng/mL (0-6.6)
[2019-06-02] MEDS ORDERED: Aspirin Chewable 81 MG TAB ONE (15:41)
[2019-06-02] MEDS ORDERED: Acetaminophen 325 MG TAB PO PRN (17:52)
[2019-06-02] MEDS ORDERED: Calcium Carbonate 500 MG ChewTAB PO PRN (17:52)
[2019-06-02] MEDS ORDERED: Ondansetron PF 4 MG/2 ML Vial IVP PRN (17:52)
--- NOTE | 2019-06-02 18:07 | PDOC.HHP ---
Hospitalist HPI - History of Present Illness Dizziness History of Present Illness: Mr. Cooper is a 74 y/o gentleman with PMH of intermittent vtac with pacemaker placement, T2DM, HLD, HTN who presents from [facility] for evaluation of dizziness. Overall the patient is a poor historian. Majority of the medical history is obtained from his son over the phone and the medical chart. Apparently he has been having frequent dizzy spells over the past week. Son states that he has had some falls as a result of this. He had a pacemaker placed over 6 months ago for a rhythm problem, his son is unaware of what it is. States he has seen improvement in his dizziness symptoms but continues to have ongoing symptoms. He has had frequent falls in which he finds himself going backwards but is able to catch himself, he denies any head trauma or loss of consciousness. The pacemaker device was interrogated in our facility and apparently he has had multiple runs almost 26 episodes of intermittent V. tach, with the longest one lasting for seconds on Saturday. At this time he denies any chest pain or shortness of breath. He denies any fever or chills. He denies any trauma to the head. Hospitalist ROS - Review of Systems Constitutional: denies: fever, chills, sweats, weakness, malaise, other Eyes: denies: pain, vision change, conjunctivae inflammation, eyelid inflammation, redness, other ENT: denies: ear pain, ear discharge, nose pain, nose discharge, nose congestion , mouth pain, mouth swelling, throat pain, throat swelling, other Respiratory: denies: cough, dry, shortness of breath, hemoptysis, SOB with excertion, pleuritic pain, sputum, wheezing, other Cardiovascular: denies: chest pain, palpitations, orthopnea, paroxysmal noc. dyspnea, edema, light headedness, other Gastrointestinal: denies: nausea, vomiting, abdominal pain, diarrhea, constipation, melena, hematochezia, other Genitourinary: denies: dysuria, frequency, incontinence, hematuria, retention, other Musculoskeletal: denies: neck pain, shoulder pain, arm pain, back pain, hand pain, leg pain, foot pain, other Skin: denies: rash, lesions, rodolfo, bruising, other Neurological: denies: weakness, numbness, incoordination, change in speech, confusion, seizures, other - Medication Medications: Medication Instructions Recorded Confirmed Type Atorvastatin Calcium 10 mg PO DAILY 09/08/14 01/11/18 History Lisinopril/Hydrochlorothiazide 1 tablet PO DAILY 09/08/14 01/11/18 History [Lisinopril-Hctz 20-12.5 mg Tab] metFORMIN HCl 1,000 mg PO BID-WM 09/08/14 01/11/18 History Furosemide [Lasix] 40 mg PO DAILY-AC #0 tab 09/12/14 01/11/18 Rx Potassium Chloride 1 tab PO DAILY 07/24/17 01/11/18 History Apixaban [Eliquis] 5 mg PO BID 01/07/18 01/11/18 History Cephalexin [Keflex] 500 mg PO TID #30 capsule 01/17/18 Rx Hospitalist History - Past Medical History Cardiac: reports: HTN, Hyperlipidemia, Other (Pacemaker) Pulmonary: reports: no pertinent history 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 Gastrointestinal: reports: no pertinent history Heme/Onc: reports: no pertinent history Hepatobiliary: reports: no pertinent history Psych: reports: no pertinent history Musculoskeletal: reports: no pertinent history Rheumatologic: reports: no pertinent history Infectious Disease: reports: no pertinent history ENT: reports: no pertinent history Renal/: reports: no pertinent history Endocrine: reports: Diabetes Dermatology: reports: no pertinent history - Past Surgical History Past Surgical History: reports: Other (pacemaker placement) - Family History Family History: reports: no pertinent history - Social History Alcohol: reports: None Drugs: reports: none Living Situation: With Family Activity level: independent ambulation - Exam General Appearance: NAD, awake alert Eye: PERRL, anicteric sclera ENT: normocephalic atraumatic, no oropharyngeal lesions, moist mucosa Neck: supple, symmetric, no JVD, no thyromegaly, no lymphadenopathy, no carotid bruit Heart: RRR, no murmur, no gallops, no rubs, normal peripheral pulses Respiratory: CTAB, no wheezes, no rales, no ronchi, normal chest expansion, no tachypnea, normal percussion Gastrointestinal: soft, non-tender, non-distended, normal bowel sounds, no palpable masses, no hepatomegaly, no splenomegaly, no bruit Extremities: no cyanosis, no clubbing, no edema Skin: normal turgor, no lesions, no rashes Neurological: cranial nerve grossly intact, normal sensation to touch, no weakness, no focal deficits, no new deficit Musculoskeletal: normal tone, normal strength, no muscle wasting Psychiatric: normal affect, normal behavior, oriented to person, oriented to place Hospitalist Results - Labs Result Diagrams: 06/02/19 13:40 06/02/19 13:40 Lab results: WBC 11.0 thou/uL (4.8-10.8) H 06/02/19 13:40 Hgb 14.2 g/dL (14.0-18.0) 06/02/19 13:40 Hct 43.6 % (42.0-52.0) 06/02/19 13:40 MCV 89.6 fL (78.0-98.0) 06/02/19 13:40 Plt Count 300 thou/uL (130-400) 06/02/19 13:40 Neutrophils % 66.3 % (42.0-75.0) 06/02/19 13:40 Sodium 140 mmol/L (136-145) 06/02/19 13:40 Potassium 3.9 mmol/L (3.5-5.1) 06/02/19 13:40 Chloride 104 mmol/L (98-107) 06/02/19 13:40 Carbon Dioxide 26 mmol/L (23-31) 06/02/19 13:40 BUN 11 mg/dL (8.4-25.7) 06/02/19 13:40 Creatinine 0.92 mg/dL (0.7-1.3) 06/02/19 13:40 Glucose 118 mg/dL (83-110) H 06/02/19 13:40 Lactic Acid 1.7 mmol/L (0.5-2.2) 06/02/19 13:40 Calcium 9.4 mg/dL (7.8-10.44) 06/02/19 13:40 Total Bilirubin 0.8 mg/dL (0.2-1.2) 06/02/19 13:40 AST 14 U/L (5-34) 06/02/19 13:40 ALT 14 U/L (8-55) 06/02/19 13:40 Alkaline Phosphatase 139 U/L (40-110) H 02/11/20 13:40 CK-MB (CK-2) 2.7 ng/mL (0-6.6) 06/02/19 13:40 Troponin I 0.036 ng/mL (< 0.028) H 06/02/19 13:40 Serum Total Protein 7.4 g/dL (5.8-8.1) 06/02/19 13:40 Albumin 4.1 g/dL (3.4-4.8) 06/02/19 13:40 Additional comment: VITAL SIGNS [facility] Jun 02, 2019 12:44 AMY Scott Amanda BP: 145/102, Pulse: 75, Resp: 24, Pain: 5, O2 sat: 93 on (Room Air), Time: 2019 12:44. - EKG Interpretation EK lead EKG interpreted by Emergency Department Physician at time of study, 12 lead EKG shows, Rate (beats per minute): 68, ventricular-paced rhythm, Conduction normal, ST segments normal, T waves normal, [place] normal, Clinical impression:, non-specific EKG - Radiology Interpretation CT scan - head Status: report reviewed by nh Hospitalist H&P A/P - Problem (1) Ventricular tachyarrhythmia Code(s): I47.2 - VENTRICULAR TACHYCARDIA Status: Acute (2) Pacemaker Code(s): Z95.0 - PRESENCE OF CARDIAC PACEMAKER Status: Acute (3) Pre-syncope Status: Acute (4) T2DM (type 2 diabetes mellitus) Status: Acute (5) HLD (hyperlipidemia) Code(s): E78.5 - HYPERLIPIDEMIA, UNSPECIFIED Status: Acute (6) HTN (hypertension) Code(s): I10 - ESSENTIAL (PRIMARY) HYPERTENSION Status: Chronic Qualifiers: Hypertension type: essential hypertension Qualified Code(s): I10 - Essential (primary) hypertension - Plan Plan: Admit to telemetry with telemetry monitoring. His device was interrogated, he is having runs of V. tach. 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 He also has a son named Kaushik who is well aware of his medical condition Disposition: Monitor rhythm strip overnight. Pending echocardiogram. Coordinate with cardiology.
[2019-06-02 20:30] VITALS: BMI 34.9
[2019-06-03 04:43] LABS: Band 5 % (5-11); Eosinophils 3 % (0-10); Hemoglobin 13.7 g/dL (14.0-18.0); Hypochromia SLIGHT = 6-15 cells (100X) (0-5/hpf); Lymphocytes 14 % (21-51); MDiff Complete? YES; Mean Corpuscular HGB CONC 32.9 g/dL (32.0-36.0); Mean Corpuscular Hemoglobin 29.3 pg (27.0-31.0); Mean Corpuscular Volume 89.2 fL (78.0-98.0); Mean Platelet Volume 8.1 fL (7.4-10.4); Monocytes 6 % (0-10); Neutrophil 72 % (42-75); Platelet Count 288 thou/uL (130-400); Platelet Morphology Comment Appears Adequate; RBC Distribution Width 12.4 % (11.5-14.5); Red Blood Cell (RBC) Count 4.67 mill/uL (4.70-6.10); White Blood Cell (WBC) Count 11.9 thou/uL (4.8-10.8)
[2019-06-03 04:52] LABS: Anion Gap 12 mmol/L (10-20); BUN (Urea Nitrogen) 12 mg/dL (8.4-25.7); Calc. Creatinine Clearance 145 mL/min (70-130); Carbon Dioxide 23 mmol/L (23-31); Chloride 106 mmol/L (98-107); Estimated GFR-MDRD Greater than 90; Glucose 135 mg/dL (83-110); Potassium 4.1 mmol/L (3.5-5.1); Sodium 137 mmol/L (136-145)
[2019-06-03] MEDS ORDERED: Non-Formulary Item 1 EACH (Metformin Hcl [Metformin Hcl] 1,000 MG) PO SCH (08:00)
[2019-06-03] MEDS: Atorvastatin Calcium 10 MG TAB PO SCH (08:41)
[2019-06-03] MEDS: Potassium Chloride 10 MEQ TAB PO SCH (08:42)
[2019-06-03] MEDS: Lisinopril/Hydrochlorothiazide 20 mg/12.5 mg Tablet PO SCH (08:42)
[2019-06-03] MEDS ORDERED: Potassium Chloride 10 MEQ TAB PO SCH (09:00)
[2019-06-03] MEDS: metFORMIN 500 MG TAB PO SCH ×2 (09:56→17:17)
--- NOTE | 2019-06-03 15:18 | PDOC.HOSPP ---
- Subjective Encounter Date: 06/03/19 Encounter Time: 07:20 Subjective: Pt seen for followup re: ventricular tachyarrhythmias. Feels well, no complaints today. - Objective Vital Signs & Weight: Vital Signs (12 hours) Temp Pulse Pulse Resp BP BP BP 06/03/19 12:25 98.3 F 60 18 134/67 06/03/19 09:20 83 155/88 H 182/98 H 06/03/19 08:42 61 06/03/19 08:33 97.9 F 61 14 168/86 H 06/03/19 03:56 97.9 F 65 18 150/83 H Pulse Ox 06/03/19 12:25 100 06/03/19 09:20 06/03/19 08:42 06/03/19 08:33 98 06/03/19 03:56 93 L Weight Weight 287 lb I&O: 06/02/19 06/03/19 06/04/19 06:59 06:59 06:59 Intake Total 240 Output Total 600 Balance -360 Result Diagrams: 06/03/19 04:19 06/03/19 04:19 Additional Labs: Accuchecks 06/03/19 06/03/19 06/02/19 11:32 06:01 20:43 POC Glucose 131 H 134 H 130 H Labs and MARs reviewed by me EKG Reviewed by me: Yes Hospitalist ROS - Review of Systems Respiratory: denies: cough, shortness of breath, SOB with excertion, pleuritic pain, wheezing Cardiovascular: denies: chest pain, palpitations, orthopnea, paroxysmal noc. dyspnea, edema, light headedness - Medication Medications: Active Medications Generic Name Dose Route Start Last Admin Trade Name Freq PRN Reason Stop Dose Admin Atorvastatin Calcium 10 mg 06/03/19 09:00 06/03/19 08:41 Lipitor PO 10 mg DAILY JERARDO Administration Lisinopril/HCTZ 1 tab 06/03/19 09:00 06/03/19 08:42 Prinizide 20-12.5 PO 1 tab DAILY JERARDO Administration Metformin HCl 1,000 mg 06/03/19 08:00 06/03/19 09:56 Glucophage PO Not Given BID- JERARDO Potassium Chloride 10 meq 06/03/19 09:00 06/03/19 08:42 Klor-Con 10 PO 10 meq DAILY JERARDO Administration Sodium Chloride 10 ml 02/12/20 09:00 06/03/19 10:28 Flush - Normal Saline IVF 10 ml Q12HR JERARDO Administration - Exam General - other findings: Obese Eye: anicteric sclera ENT: moist mucosa Neck: supple, no JVD, no thyromegaly, no lymphadenopathy Heart: RRR, no gallops, no rubs, normal peripheral pulses Respiratory: CTAB, no wheezes, no rales, no ronchi Gastrointestinal: soft, non-tender, non-distended, normal bowel sounds Skin: no rashes Musculoskeletal: no muscle wasting Psychiatric: normal affect, normal behavior Hosp A/P - Plan - Assessment (1) Ventricular tachyarrhythmia Code(s): I47.2 - VENTRICULAR TACHYCARDIA Status: Acute (2) Pre-syncope Status: Acute (3) T2DM (type 2 diabetes mellitus) Status: Chronic (4) HLD (hyperlipidemia) Code(s): E78.5 - HYPERLIPIDEMIA, UNSPECIFIED Status: Chronic (5) s/p Pacemaker Code(s): Z95.0 - PRESENCE OF CARDIAC PACEMAKER Status: Chronic (6) HTN (hypertension) Code(s): I10 - ESSENTIAL (PRIMARY) HYPERTENSION Status: Chronic - Plan Plan: Await cardiology input. Monitor on telemetry. Reasonable control of blood sugars. Monitor vital signs and titrate antihypertensives as needed. Fall precautions PT/OT eval e
--- NOTE | 2019-06-03 19:04 | CON ---
DATE OF CONSULTATION: 06/03/2019 REASON FOR CONSULTATION: Nonsustained VT. PRIMARY ELECTRONIC CONSOLE DISPLAY OPERATOR: Berto Abreu MD HISTORY OF PRESENT ILLNESS: Mr. Cooper is a very pleasant 74-year-old white gentleman, who comes to the hospital for evaluation of dizziness and presyncope. He is unable to give much of the history and most of the history is taken from chart review. He has been having dizzy spells with some falls resulting from dizzy spells, no syncope. He had a pacemaker placed 6 months ago for symptomatic bradycardia. He is in chronic atrial fibrillation and has been in slow ventricular response in the past. He came in and interrogation of the device showed multiple episodes of nonsustained ventricular tachycardia, the longest one was 5 seconds worth but most of the episodes are 1 or 2 seconds of worth. Mr. Cooper cannot give me any clear history. When asked, he denies chest pain, tightness, or pressure. PAST MEDICAL HISTORY: 1. Chronic atrial fibrillation. 2. Tachy-surya syndrome status post pacemaker placement. 3. Chronic diastolic heart failure. 4. Obesity with BMI of 37. 5. Type 2 diabetes. 6. Hypertension. 7. Hyperlipidemia. 8. Glaucoma. PAST SURGICAL HISTORY: 1. Right ankle surgery. 2. Cyst removed from testicle. 3. Cataract surgery. 4. Pacemaker placement. OUTPATIENT MEDICATIONS: 1. Metformin 1000 mg p.o. b.i.d. 2. Potassium chloride one tablet daily. 3. Lisinopril-hydrochlorothiazide 20/12.5 mg a day. 4. Furosemide 40 mg a day. 5. Atorvastatin 10 mg a day. 6. Cephalexin 500 mg t.i.d. 7. Eliquis 5 mg p.o. b.i.d. ALLERGIES: CODEINE. SOCIAL HISTORY: No alcohol, tobacco, or drugs. Former cigar smoker. FAMILY HISTORY: Mother at 70 of [place]. Father at 60 out of an [place]. REVIEW OF SYSTEMS: 12-point review of systems was done and was all negative unless stated in the history of present illness, however, the sensitivity is reduced given his confusion. PHYSICAL EXAMINATION: VITAL SIGNS: Temperature 98.3, pulse 60, respiratory rate 18, saturation 100% on room air, blood pressure 134/67. GENERAL: Awake, alert, oriented to person, but cannot tell me time or place adequately, in no distress. HEENT: Normocephalic, atraumatic. NECK: Supple. LUNGS: Clear. CARDIOVASCULAR: S1 and S2. No S3 or S4. No murmurs. There is a grade 2/6 systolic murmur at the right upper sternal border. ABDOMEN: Soft. Positive bowel sounds. EXTREMITIES: 1+ edema. SKIN: Warm and dry. LABORATORY DATA: Laboratory work was reviewed. CBC with a white count of 11, hemoglobin of 13.7, hematocrit 41, platelet count 288. Chemistry was unremarkable. BNP was 88. Troponin was in the indeterminate range. Echocardiogram done today showed an EF of 50% to 55%. Pacer wires in the right ventricle. Mild MR. CT of the brain showed no evidence of acute intracranial abnormality. ASSESSMENT: 1. Nonsustained ventricular tachycardia. 2. Presence of permanent pacemaker. 3. Tachy-surya syndrome. 4. Dizziness. 5. Alzheimer dementia. PLAN: 1. Continue telemetry monitoring. 2. He has chronic atrial fibrillation, has been on Eliquis. Cannot do any further risk stratification with a heart catheterization until the Eliquis is worn out. I spoke with him about this and he tells me to talk with his for his son and they can decide for him. I think this is appropriate as he is confused at this time and unable to provide the date or where he is. 3. We will plan on holding Eliquis for now. 4. We will further risk stratify with a heart catheterization on Saturday once the Eliquis is out of his system. 5. Continue to monitor on telemetry. 6. I doubt that the episodes of nonsustained VT have been symptomatic as they have been really short and has not had many in the recent past to provoke him to almost pass out or fall down. 7. Atrial fibrillation, is rate controlled at the time. Thank you for letting us to participate in the care of your patient. We will continue to follow. Job ID: [id number]
[2019-06-04] MEDS: Potassium Chloride 10 MEQ TAB PO SCH (08:55)
[2019-06-04] MEDS: Atorvastatin Calcium 10 MG TAB PO SCH (08:56)
[2019-06-04] MEDS: Lisinopril/Hydrochlorothiazide 20 mg/12.5 mg Tablet PO SCH (08:56)
[2019-06-04] MEDS: Furosemide 40 MG TAB PO SCH (08:57)
[2019-06-04] MEDS: metFORMIN 500 MG TAB PO SCH ×2 (09:59→16:37)
--- NOTE | 2019-06-04 13:44 | PDOC.HOSPP ---
- Subjective Encounter Date: 06/04/19 Encounter Time: 07:00 Subjective: Pt seen for followup re: ventricular tachycardia. Denies chest pain or shortness of breath. - Objective Vital Signs & Weight: Vital Signs (12 hours) Temp Pulse Resp BP Pulse Ox 06/04/19 11:22 97.8 F 87 16 136/79 96 06/04/19 08:48 98 F 70 16 135/73 99 06/04/19 04:00 98 F 60 18 131/79 95 Weight Weight 287 lb I&O: 06/03/19 06/04/19 06/05/19 06:59 06:59 06:59 Intake Total 240 200 Output Total 600 700 Balance -360 -500 Result Diagrams: 06/03/19 04:19 06/03/19 04:19 Additional Labs: Accuchecks 06/04/19 06/04/19 06/03/19 11:09 05:09 19:57 POC Glucose 148 H 129 H 179 H 06/03/19 16:41 POC Glucose 146 H Labs and MARs reviewed by me EKG Reviewed by me: Yes (Tele: a. fib, V-paced) Hospitalist ROS - Review of Systems Cardiovascular: denies: chest pain, palpitations, orthopnea, paroxysmal noc. dyspnea, edema, light headedness Gastrointestinal: denies: nausea, vomiting, abdominal pain, diarrhea, constipation, melena, hematochezia - Medication Medications: Active Medications Generic Name Dose Route Start Last Admin Trade Name Freq PRN Reason Stop Dose Admin Atorvastatin Calcium 10 mg 06/03/19 09:00 06/04/19 08:56 Lipitor PO 10 mg DAILY JERARDO Administration Furosemide 40 mg 06/04/19 07:30 06/04/19 08:57 Lasix PO 40 mg DAILY-AC JERARDO Administration Lisinopril/HCTZ 1 tab 06/03/19 09:00 06/04/19 08:56 Prinizide 20-12.5 PO 1 tab DAILY JERARDO Administration Metformin HCl 1,000 mg 06/03/19 08:00 06/04/19 09:59 Glucophage PO Not Given BID-WM JERARDO Potassium Chloride 10 meq 06/03/19 09:00 06/04/19 08:55 Klor-Con 10 PO 10 meq DAILY JERARDO Administration Sodium Chloride 10 ml 06/03/19 09:00 06/04/19 09:03 Flush - Normal Saline IVF 10 ml Q12HR JERARDO Administration - Exam General - other findings: Obese Eye: anicteric sclera ENT: moist mucosa Neck: supple Heart: no rubs, irregular Respiratory: CTAB Gastrointestinal: soft, non-tender Extremities: no cyanosis Musculoskeletal: no muscle wasting Psychiatric: normal affect, normal behavior Hosp A/P - Plan - Assessment (1) Ventricular tachyarrhythmia Code(s): I47.2 - VENTRICULAR TACHYCARDIA Status: Acute (2) Pre-syncope Status: Acute (3) T2DM (type 2 diabetes mellitus) Status: Chronic (4) HLD (hyperlipidemia) Code(s): E78.5 - HYPERLIPIDEMIA, UNSPECIFIED Status: Chronic (5) s/p Pacemaker Code(s): Z95.0 - PRESENCE OF CARDIAC PACEMAKER Status: Chronic (6) HTN (hypertension) Code(s): I10 - ESSENTIAL (PRIMARY) HYPERTENSION Status: Chronic - Plan Plan: Plan is for cath after discussion with pt's . Monitor on telemetry. Reasonable control of blood sugars. Continue accuchecks and insulin sliding scale. HTN controlled. Continue Lipitor.
[2019-06-04] MEDS ORDERED: Communication Order-Pharmacy FS SCH (17:30)
--- NOTE | 2019-06-04 19:14 | PDOC.CPN ---
- Subjective Date: 06/04/19 Time: 19:12 Interval history: No new issues. No chest pain. No SOB, no syncope. - Review of Systems General: denies: fever/chills, weight/appetite/sleep changes, night sweats, fatigue Respiratory: denies: cough, congestion, shortness of breath, exercise intolerance Cardiovascular: denies: chest pain, palpitation, edema, paroxysmal nocturnal dyspnea, orthopnea Gastrointestinal: denies: nausea, vomiting, diarrhea, constipation, abd pain, GI bleeding Musculoskeletal: denies: pain, tenderness, stiffness, swelling, arthritis/ arthralgias Neurological: denies: numbness, syncope, seizure, weakness - Objective Allergies/Adverse Reactions: Allergies Allergy/AdvReac Type Severity Reaction Status Date / Time codeine AdvReac Severe Verified 07/24/17 22:16 Visit Medications: Current Medications Acetaminophen (Tylenol) 650 mg PO Q4H PRN PRN Reason: Headache/Fever/Mild Pain (1-3) Atorvastatin Calcium (Lipitor) 10 mg PO DAILY [facility] Last Admin: 06/04/19 08:56 Dose: 10 mg Calcium Carbonate (Tums) 1,000 mg PO Q4H PRN PRN Reason: Heartburn or Indigestion Furosemide (Lasix) 40 mg PO DAILY-AC [facility] Last Admin: 06/04/19 08:57 Dose: 40 mg Lisinopril/HCTZ (Prinizide 20-12.5) 1 tab PO DAILY [facility] Last Admin: 06/04/19 08:56 Dose: 1 tab Sodium Chloride (Normal Saline 0.9%) 500 mls @ 75 mls/hr IV .Q6H40M [facility] Stop: 06/05/19 06:40 Metformin HCl (Glucophage) 1,000 mg PO BID-WM [facility] Last Admin: 06/04/19 16:37 Dose: Not Given Miscellaneous Information (Communication Order-Pharmacy) 0 each FS ONE [facility] Stop: 06/04/19 23:59 Ondansetron HCl (Zofran) 4 mg IVP Q6H PRN PRN Reason: Nausea/Vomiting Potassium Chloride (Klor-Con 10) 10 meq PO DAILY [facility] Last Admin: 06/04/19 08:55 Dose: 10 meq Sodium Chloride (Flush - Normal Saline) 10 ml IVF Q12HR [facility] Last Admin: 06/04/19 09:03 Dose: 10 ml Sodium Chloride (Flush - Normal Saline) 10 ml IVF PRN PRN PRN Reason: Saline Flush Vital Signs & Weight: Vital Signs Temp Pulse Pulse Pulse Resp BP BP 06/04/19 17:00 06/04/19 15:00 97.9 F 66 16 06/04/19 13:16 86 70 140/84 124/68 06/04/19 11:22 97.8 F 87 16 06/04/19 08:48 98 F 70 16 BP BP BP BP Pulse Ox 06/04/19 17:00 143/79 H 149/84 H 154/76 H 06/04/19 15:00 114/68 97 06/04/19 13:16 06/04/19 11:22 136/79 96 06/04/19 08:48 135/73 99 Weight 287 lb - Physical Exam General: appears well HEENT: mucus membranes moist Neck: supple neck Cardiac: regular rate and rhythm, systolic murmur Lungs: normal breath sounds Neuro: grossly intact Abdomen: active bowel sounds Extremities: no edema Skin: clear Musculoskeletal: no pain - Labs Result Diagrams: 06/03/19 04:19 06/03/19 04:19 Troponin/CKMB CK-MB (CK-2) 2.7 ng/mL (0-6.6) 06/02/19 13:40 Troponin I 0.036 ng/mL (< 0.028) H 06/02/19 13:40 - Telemetry Sinus rhythms and dysrhythmias: other (V paced.) - Assessment/Plan Assessment/Plan: 1. Non sustained VT. 2. Presyncope 3. PPM in place 4. Normal LV funciotn PLAN: - I spoke with his about doing LHC and she wants t proceed. I spoke with Mr. Cooper and he states he will do what his wants him to do. - Will proceed with [facility] tomorrow afternoon. - Continue to hold Eliquis until after LHC. - Groin access. BMS if needed given [facility] need of anticoagulation.
[2019-06-05] MEDS ORDERED: Sodium Chloride 0.9% 500 ML IV SCH (00:01)
[2019-06-05 05:02] LABS: #Basophils 0.1 thou/uL (0.0-0.2); #Eosinphils 0.4 thou/uL (0.0-0.7); #Lymphocytes 2.5 thou/uL (1.20-3.40); #Neutrophils 6.3 thou/uL (1.40-6.50); %Basophils 0.9 % (0.0-1.0); %Eosinophils 3.6 % (0.0-10.0); %Lymphocytes 24.6 % (21.0-51.0); %Monocytes 9.5 % (0.0-10.0); %Neutrophils 61.3 % (42.0-75.0); Hemoglobin 13.8 g/dL (14.0-18.0); Mean Corpuscular HGB CONC 32.9 g/dL (32.0-36.0); Mean Corpuscular Hemoglobin 29.5 pg (27.0-31.0); Mean Corpuscular Volume 89.7 fL (78.0-98.0); Mean Platelet Volume 8.6 fL (7.4-10.4); Platelet Count 283 thou/uL (130-400); RBC Distribution Width 12.4 % (11.5-14.5); Red Blood Cell (RBC) Count 4.67 mill/uL (4.70-6.10); White Blood Cell (WBC) Count 10.3 thou/uL (4.8-10.8)
[2019-06-05] MEDS: Lisinopril/Hydrochlorothiazide 20 mg/12.5 mg Tablet PO SCH (05:28)
[2019-06-05] MEDS: Potassium Chloride 10 MEQ TAB PO SCH (05:28)
[2019-06-05] MEDS: Atorvastatin Calcium 10 MG TAB PO SCH (05:29)
[2019-06-05] MEDS: Furosemide 40 MG TAB PO SCH (05:29)
[2019-06-05] MEDS: metFORMIN 500 MG TAB PO SCH ×2 (05:29→19:20)
[2019-06-05 05:31] LABS: Anion Gap 14 mmol/L (10-20); BUN (Urea Nitrogen) 14 mg/dL (8.4-25.7); Calc. Creatinine Clearance 138 mL/min (70-130); Calcium 8.6 mg/dL (7.8-10.44); Carbon Dioxide 21 mmol/L (23-31); Chloride 106 mmol/L (98-107); Estimated GFR-MDRD 89; Glucose 120 mg/dL (83-110); Potassium 3.8 mmol/L (3.5-5.1); Sodium 137 mmol/L (136-145)
[2019-06-05] MEDS ORDERED: Heparin (Artline) 1,000 ML ONE (11:55)
[2019-06-05] MEDS ORDERED: Lidocaine 1% (PF) 30 ML VIAL ONE (11:55)
[2019-06-05] MEDS ORDERED: Iopamidol 370 76% 100 ML VIAL ONE (12:15)
[2019-06-05] MEDS ORDERED: Fentanyl 100 MCG/2 ML VIAL ONE (13:05)
--- NOTE | 2019-06-05 18:30 | PDOC.HOSPP ---
- Subjective Encounter Date: 06/05/19 Encounter Time: 07:40 Subjective: Pt seen for followup re; ventricular tachycardia. Awaiting cath, no complaints. - Objective Vital Signs & Weight: Vital Signs (12 hours) Temp Pulse Pulse Pulse Resp BP BP 06/05/19 11:44 79 61 137/79 138/76 06/05/19 07:37 98.3 F 61 20 BP Pulse Ox Pulse Ox Pulse Ox 06/05/19 11:44 96 100 06/05/19 07:37 139/77 95 Weight Weight 287 lb I&O: 06/04/19 06/05/19 06/06/19 06:59 06:59 06:59 Intake Total 200 350 Output Total 700 725 Balance -500 -375 Result Diagrams: 06/05/19 04:31 06/05/19 04:31 Additional Labs: Accuchecks 06/05/19 06/05/19 06/04/19 10:53 06:43 20:53 POC Glucose 108 141 H 151 H Labs and MARs reviewed by me EKG Reviewed by me: Yes (Tele; NSR) Hospitalist ROS - Review of Systems Cardiovascular: denies: chest pain, palpitations, orthopnea, paroxysmal noc. dyspnea, edema, light headedness Genitourinary: denies: dysuria, frequency, incontinence, hematuria, retention - Medication Medications: Active Medications Generic Name Dose Route Start Last Admin Trade Name Freq PRN Reason Stop Dose Admin Atorvastatin Calcium 10 mg 06/03/19 09:00 06/05/19 05:29 Lipitor PO 10 mg DAILY JERARDO Administration Furosemide 40 mg 06/04/19 07:30 06/05/19 05:29 Lasix PO Not Given DAILY-AC JERARDO Lisinopril/HCTZ 1 tab 06/03/19 09:00 06/05/19 05:28 Prinizide 20-12.5 PO 1 tab DAILY JERARDO Administration Metformin HCl 1,000 mg 06/03/19 08:00 06/05/19 05:29 Glucophage PO Not Given BID-WM JERARDO Potassium Chloride 10 meq 06/03/19 09:00 06/05/19 05:28 Klor-Con 10 PO 10 meq DAILY JERARDO Administration Sodium Chloride 10 ml 06/03/19 09:00 06/05/19 05:29 Flush - Normal Saline IVF 10 ml Q12HR JERARDO Administration - Exam General - other findings: Obese ENT: moist mucosa Neck: supple Heart: RRR Respiratory: CTAB, no wheezes Gastrointestinal: non-tender, non-distended Extremities: no cyanosis Psychiatric: normal affect, normal behavior Hosp A/P - Plan - Assessment (1) Ventricular tachyarrhythmia Code(s): I47.2 - VENTRICULAR TACHYCARDIA Status: Acute (2) Pre-syncope Status: Acute (3) T2DM (type 2 diabetes mellitus) Status: Chronic (4) HLD (hyperlipidemia) Code(s): E78.5 - HYPERLIPIDEMIA, UNSPECIFIED Status: Chronic (5) s/p Pacemaker Code(s): Z95.0 - PRESENCE OF CARDIAC PACEMAKER Status: Chronic (6) HTN (hypertension) Code(s): I10 - ESSENTIAL (PRIMARY) HYPERTENSION Status: Chronic - Plan cath today Monitor on telemetry. Continue accuchecks and insulin sliding scale. HTN controlled. Continue Lipitor.
[2019-06-06] MEDS: Atorvastatin Calcium 10 MG TAB PO SCH (08:22)
[2019-06-06] MEDS: Potassium Chloride 10 MEQ TAB PO SCH (08:22)
[2019-06-06] MEDS: Lisinopril/Hydrochlorothiazide 20 mg/12.5 mg Tablet PO SCH (08:22)
[2019-06-06] MEDS: metFORMIN 500 MG TAB PO SCH (08:22)
[2019-06-06] MEDS: Furosemide 40 MG TAB PO SCH (08:23)
[2019-06-06 12:07] VITALS: BP 125/68; TEMP 97.3
--- NOTE | 2019-06-06 15:01 | DIS ---
DATE OF ADMISSION: 06/02/2019 DATE OF DISCHARGE: 06/06/2019 DISCHARGE DISPOSITION: Home. PRIMARY DISCHARGE DIAGNOSES: Mild coronary artery disease; nonsustained ventricular tachycardia, resolved; near syncope, resolved. SECONDARY DISCHARGE DIAGNOSES: Hypertension, diabetes mellitus type 2, and dyslipidemia. PROCEDURES DONE DURING HOSPITALIZATION: Echo with 2D Doppler done showed EF of 50% to 55%. Coronary angiogram done by Dr. Aberu on 06/05/2019, showed mild CAD, had dilated ascending aorta. H and H 13 and 41, platelet count 283. BUN 14, creatinine 0.8. DISCHARGE MEDICATIONS: 1. Eliquis 5 mg twice daily. 2. Atorvastatin 10 mg daily. 3. Lisinopril with hydrochlorothiazide 20/12.5 mg p.o. daily. 4. Metformin 1000 mg twice daily. 5. Potassium chloride 10 mEq p.o. daily. 6. Lasix 40 mg p.o. daily. ALLERGIES: ALLERGIC TO CODEINE. DISCHARGE PLAN: The patient to follow up with his primary care physician, Ms. Carolina Mondragon, on 06/08/2019 at 9 a.m. He also needs to follow up with Dr. Abreu in 2 weeks. BRIEF COURSE DURING HOSPITALIZATION: The patient initially came to ER on the with complaints of dizziness. He has had these frequent dizzy spells over the past week prior to arrival here. The patient also had some falls because of these episodes. On arrival, his pacemaker device was also interrogated which revealed multiple runs of intermittent ventricular tachycardia. In view of this, the patient was admitted to telemetry. He was closely monitored with Cardiology consultation with Dr. Abreu as well. The patient has had coronary angiogram done which showed mild coronary artery disease. He is for medical management. He has remained hemodynamically stable all through his stay here with no further episodes of ventricular tachycardia. He is cleared for discharge by Dr. Abreu today. We will likely add a beta jenny after confirmation with Dr. Abreu. Please note I have seen and examined the patient on the day of discharge. Job ID: [id number]
--- NOTE | 2019-06-06 16:40 | PDOC.CPN ---
- Subjective Date: 06/06/19 Time: 12:05 Interval history: He is doing well. Cath site without issue,s no masses or bruits. - Review of Systems General: denies: fever/chills, weight/appetite/sleep changes, night sweats, fatigue Respiratory: denies: cough, congestion, shortness of breath, exercise intolerance Cardiovascular: denies: chest pain, palpitation, edema, paroxysmal nocturnal dyspnea, orthopnea Gastrointestinal: denies: nausea, vomiting, diarrhea, constipation, abd pain, GI bleeding Musculoskeletal: denies: pain, tenderness, stiffness, swelling, arthritis/ arthralgias Neurological: denies: numbness, syncope, seizure, weakness - Objective Allergies/Adverse Reactions: Allergies Allergy/AdvReac Type Severity Reaction Status Date / Time codeine AdvReac Severe Verified 07/24/17 22:16 Visit Medications: Current Medications Acetaminophen (Tylenol) 650 mg PO Q4H PRN PRN Reason: Headache/Fever/Mild Pain (1-3) Atorvastatin Calcium (Lipitor) 10 mg PO DAILY [facility] Last Admin: 06/06/19 08:22 Dose: 10 mg Calcium Carbonate (Tums) 1,000 mg PO Q4H PRN PRN Reason: Heartburn or Indigestion Furosemide (Lasix) 40 mg PO DAILY-AC [facility] Last Admin: 06/06/19 08:23 Dose: 40 mg Lisinopril/HCTZ (Prinizide 20-12.5) 1 tab PO DAILY [facility] Last Admin: 06/06/19 08:22 Dose: 1 tab Metformin HCl (Glucophage) 1,000 mg PO BID-WM [facility] Last Admin: 06/06/19 08:22 Dose: 1,000 mg Ondansetron HCl (Zofran) 4 mg IVP Q6H PRN PRN Reason: Nausea/Vomiting Potassium Chloride (Klor-Con 10) 10 meq PO DAILY [facility] Last Admin: 06/06/19 08:22 Dose: 10 meq Sodium Chloride (Flush - Normal Saline) 10 ml IVF Q12HR JERARDO Last Admin: 06/06/19 08:23 Dose: 10 ml Sodium Chloride (Flush - Normal Saline) 10 ml IVF PRN PRN PRN Reason: Saline Flush Vital Signs & Weight: Vital Signs Temp Pulse Resp BP Pulse Ox 06/06/19 11:44 97.3 F L 62 18 125/68 96 06/06/19 08:20 98.1 F 85 18 140/81 98 Weight 287 lb - Physical Exam General: appears well HEENT: mucus membranes moist Neck: supple neck Cardiac: no murmur Lungs: clear to auscultation Neuro: grossly intact Abdomen: active bowel sounds Extremities: no edema Skin: clear Musculoskeletal: no pain - Labs Result Diagrams: 06/05/19 04:31 06/05/19 04:31 Troponin/CKMB CK-MB (CK-2) 2.7 ng/mL (0-6.6) 06/02/19 13:40 Troponin I 0.036 ng/mL (< 0.028) H 06/02/19 13:40 - Telemetry Sinus rhythms and dysrhythmias: other (V paced.) Supraventricular conduction: atrial fibrillation - Assessment/Plan Assessment/Plan: 1. Non sustained VT. 2. Presyncope 3. PPM in place 4. Normal LV function 5. Normal coronaries. PLAN: - Will add a low dose BB for his non sustained VT. - Not worried about bradycardia as he has a Pacer in place and BP should tolerate. - May discharge home. Follow up in 1 month.
--- NOTE | 2019-06-06 17:02 | EKG ---
Test Reason : Blood Pressure : / mmHG Vent. Rate : 068 BPM Atrial Rate : 067 BPM P-R Int : 000 ms QRS Dur : 160 ms QT Int : 472 ms P-R-T Axes : 000 -85 076 degrees QTc Int : 501 ms Ventricular-paced rhythm Abnormal ECG Confirmed by FREDDIE CHAUDHARY ([id number]), primer expeditor and drier SELMA LIND ([id number]) on 06/06/2019 5:01:47 PM Referred By: Confirmed By:FREDDIE CHAUDHARY
== END 2019-06-06 16:55 | disposition home or self-care (01) | DRG 287 ==
LOC: ERS 12:35 → 2NO 15:37
PROVIDERS: ADMIT Internal Medicine; ATTEND Internal Medicine
PROC: 4B02XSZ Measurement of Cardiac Pacemaker, External Approach (ICD-10-PCS; principal; 2019-06-02)
PROC: 4A023N7 Measurement of Cardiac Sampling and Pressure, Left Heart, Percutaneous Approach (ICD-10-PCS; 2019-06-05)
PROC: B2111ZZ Fluoroscopy of Multiple Coronary Arteries using Low Osmolar Contrast (ICD-10-PCS; 2019-06-05)
PROC: B2151ZZ Fluoroscopy of Left Heart using Low Osmolar Contrast (ICD-10-PCS; 2019-06-05)
DX: I11.0 Hypertensive heart disease with heart failure (principal); I47.2 Ventricular tachycardia; I48.20 Chronic atrial fibrillation, unspecified; I50.32 Chronic diastolic (congestive) heart failure; I25.10 Atherosclerotic heart disease of native coronary artery without angina pectoris; E78.5 Hyperlipidemia, unspecified; E66.9 Obesity, unspecified; I49.5 Sick sinus syndrome; G30.9 Alzheimer's disease, unspecified; F02.80 Dementia in other diseases classified elsewhere, unspecified severity, without behavioral disturbance, psychotic disturbance, mood disturbance, and anxiety; Z88.8 Allergy status to other drugs, medicaments and biological substances; Z95.0 Presence of cardiac pacemaker; Z79.899 Other long term (current) drug therapy; Z79.01 Long term (current) use of anticoagulants; Z79.84 Long term (current) use of oral hypoglycemic drugs; Z68.37 Body mass index [BMI] 37.0-37.9, adult
CPT/HCPCS: 36415; 36416; 70450; 80048; 82553; 83605; 83880; 85007; 85025; 85027; 93005; 93306; 93458; 94760; C1760; C1769; J1644; J2001; J3010; Q9967